=== PATIENT | female | born 1975 | race Caucasian/White ===

== ENCOUNTER 2024-03-15 06:18 | Emergency (ER) | payer BC, SELFPAY ==
[2024-03-15 06:19] VITALS: BMI 37.1
[2024-03-15 06:20] VITALS: BP 202/106
--- NOTE | 2024-03-15 06:39 | ED.GENMED ---
History of Present Illness
General
Chief Complaint: Skin Problem
Time Seen by Provider: 03/15/24 06:39
History of Present Illness
History of Present Illness:
HPI: The patient was using; [employer] chemical peel for her face applying with her fingers. She noticed that there was concern for abnormality to the distal aspects of the fingers that she used to apply the peel. She had increasing pain and
some drainage so she went to urgent care where they placed her on mupirocin ointment and Bactrim. Overall she is improved but today she had an episode where she had rather significant right hand pain and swelling. Currently the hand pain has
improved.
EXAM:
GENERAL: Well appearing in no distress, systolics above 200 and then repeat down to 160 without intervention
HEENT: Moist oral mucosa
NEUROLOGIC: Excellent strength all extremities, no obvious coordination deficits
PSYCHIATRIC: Appropriate mental status, normal insight and judgement
EXTREMITIES: There is some dried and excoriated wounds noted to the distal aspects of the fingers of the right hand, she has excellent radial and ulnar pulses, there is very minimal soft tissue swelling to the palmar aspect of the right hand
SKIN: No rash, no lesions
TIME OF INITIAL ENCOUNTER: 6:45 AM
NUMBER AND COMPLEXITY OF PROBLEMS ADDRESSED AT THE ENCOUNTER
� Chronic conditions affecting care: Has had COVID in the past but otherwise fairly healthy, she does not have a history of high blood pressure
� Acute Exacerbation and/or Progression of Chronic Illness: This is an acute problem
� Differential Diagnosis includes: No evidence for DVT based on physical examination, no evidence of cellulitis on physical examination
AMOUNT AND/OR COMPLEXITY OF DATA TO BE REVIEWED AND ANALYZED
� I performed an independent evaluation of and my interpretation is:
EKG:
CT:
X-rays:
Laboratory Studies:
Other:
� Review of other/old records:
� Clinical information was obtained by an independent historian: None needed
� Prescriptions/Medications Considered but not given:
� Further testing considered but not performed: No indication for x-rays or labs at this time
RISK OF COMPLICATIONS AND/OR MORBIDITY OR MORTALITY OF PATIENT MANAGEMENT
� Social determinants of health affecting care: Lives at home
� Discussion with other providers:
� Escalation of care including admission/observation vs risk of discharge considered: Overall she has spontaneously improved by ED visit. She is to continue the Bactrim and the mupirocin. We talked about her blood pressure
being elevated and she is to follow-up with PMD this week.
Phy Exam
Physical Exam
Physical Exam:
See HPI
Course
Vital Signs
Initial and Last Documented VS:
Initial Vital Signs
Temp Pulse Resp BP Pulse Ox
98.4 F 74 22 202/106 98
03/15/24 06:20 03/15/24 06:20 03/15/24 06:20 03/15/24 06:20 03/15/24 06:20
Last Documented Vital Signs
Temp Pulse Resp BP Pulse Ox
98.4 F 74 22 202/106 98
03/15/24 06:20 03/15/24 06:20 03/15/24 06:20 03/15/24 06:20 03/15/24 06:20
*Critical Care Note
Total Time (30-74mins, 75-104mins- exclusive of procedures): Not Applicable
ED Attending Note
-
Portions of this chart may have been created with voice recognition software.� Occasional wrong word or��sound alike� substitutions may have occurred due to the inherent limitations of voice recognition software.
Discharge Plan
Interventions
Interventions:
*Risk Screen - Suicide Last Done: 03/15/24 06:20
*General Assessment Last Done: 03/15/24 06:49
*Neglect/Abuse Screening Last Done: 03/15/24 06:20
ED- Fall Risk Assessment Last Done: 03/15/24 06:43
*ED COVID-19 Vaccine History Last Done: 03/15/24 06:49
ED-Skin Assessment Last Done: 03/15/24 06:43
Discharge Date and Time
Print Language: MAORI
[2024-03-15 06:50] VITALS: BP 164/108
== END 2024-03-15 07:05 | disposition home or self-care (01) ==
LOC: EMR 06:18
PROVIDERS: EMERGENCY PHYSICIAN Emergency Medicine
DX: M79.641 Pain in right hand (principal); R03.0 Elevated blood-pressure reading, without diagnosis of hypertension
CPT/HCPCS: 99282